=== PATIENT | male | born 1955 | race Caucasian/White ===

== ENCOUNTER 2019-10-14 12:15 | Day surgery (SDC) | payer OTHER ==
[~2019-10-14] VITALS: Ht 182.9 cm; Wt 106.3 kg
[~2019-10-14 12:15] MED LIST: TRIDERM28.4 GM
== END 2019-10-14 15:00 | disposition home or self-care (01) ==
LOC: ORSCSDS 12:15
PROVIDERS: Student in an Organized Health Care Education/Training Program
PROC: 0DBN8ZX Excision of Sigmoid Colon, Via Natural or Artificial Opening Endoscopic, Diagnostic (ICD-10-PCS; principal; 2019-10-14 14:30)
PROC: 0DBP8ZX Excision of Rectum, Via Natural or Artificial Opening Endoscopic, Diagnostic (ICD-10-PCS; principal; 2019-10-14 14:30)
PROC: 0DBK8ZX Excision of Ascending Colon, Via Natural or Artificial Opening Endoscopic, Diagnostic (ICD-10-PCS; principal; 2019-10-14 14:30)
DX: Z12.11 Encounter for screening for malignant neoplasm of colon (principal); D12.2 Benign neoplasm of ascending colon; K63.5 Polyp of colon; K62.1 Rectal polyp; K57.30 Diverticulosis of large intestine without perforation or abscess without bleeding; K64.8 Other hemorrhoids; Z86.010 Personal history of colon polyps; I10 Essential (primary) hypertension; F17.210 Nicotine dependence, cigarettes, uncomplicated
CPT/HCPCS: 88305; J2704; J7120

== ENCOUNTER → 2019-12-03 | Outpatient (CLI) | payer OTHER | END | disposition home or self-care (01) | LOC: PLD 11:57 → LAB SHORT 11:57 | DX: B35.1 Tinea unguium (principal) | CPT/HCPCS: 88305; 88312 ==

== ENCOUNTER 2020-09-09 11:36 | Day surgery (SDC) | payer OTHER ==
[~2020-09-09] VITALS: Ht 182.9 cm; Wt 110.0 kg
[2020-09-09] MEDS ORDERED: HYDR1TAB94 (12:00)
--- NOTE | 2020-09-09 13:28 | NUR ---
09/09/20 1328 Isabel Villalobos PATIENTS PREOP BLOOD PRESSURES WERE HIGH, TALKED WITH DR COUCH AND RECEIVED ORDER TO TREAT. WENT BACK IN WITH PATIENT AND RECHECKED HIS BP BEFORE MEDICATING AND PRESSURE WAS DONE TO ACCEPTABLE RANGE SO MEDICATION WAS NOT GIVEN. HOWEVER IT WAS PULLED AND OPENED IN PREPARATION SO THIS WILL NEED TO BE WASTED
--- NOTE | 2020-09-09 13:29 | NUR ---
09/09/20 1329 Bryson Burciaga 0.15MG EPINEPHRINE ADDED TO 30ML 0.5% BUPIVACAINE PL TO ACHIEVE A SOLUTION OF 0.5% BUPIVACAINE WITH EPI 1:200,000. 10ML OF SOLUTION INJ INTO OPSITE BY DR MCLEAN AT 1310.
== END 2020-09-09 14:06 | disposition home or self-care (01) ==
LOC: ORSCSDS 11:36
PROVIDERS: Ophthalmology
PROC: 080PXZZ Alteration of Left Upper Eyelid, External Approach (ICD-10-PCS; principal; 2020-09-09 13:00)
PROC: 080NXZZ Alteration of Right Upper Eyelid, External Approach (ICD-10-PCS; principal; 2020-09-09 13:00)
DX: H02.834 Dermatochalasis of left upper eyelid (principal); I25.10 Atherosclerotic heart disease of native coronary artery without angina pectoris; I10 Essential (primary) hypertension; M19.90 Unspecified osteoarthritis, unspecified site; G47.33 Obstructive sleep apnea (adult) (pediatric); J44.9 Chronic obstructive pulmonary disease, unspecified; F17.210 Nicotine dependence, cigarettes, uncomplicated; Z79.899 Other long term (current) drug therapy
CPT/HCPCS: A9270; J0171; J2250; J2704; J7040

== ENCOUNTER 2020-12-26 17:55 | Emergency (ER) | payer OTHER ==
[~2020-12-26] VITALS: Ht 182.9 cm; Wt 111.1 kg
[~2020-12-26 17:55] MED LIST changes: +HYDR1TAB94
== END 2020-12-26 20:18 | disposition home or self-care (01) ==
LOC: ER 17:55
DX: I80.02 Phlebitis and thrombophlebitis of superficial vessels of left lower extremity (principal); F17.200 Nicotine dependence, unspecified, uncomplicated; Z88.2 Allergy status to sulfonamides
CPT/HCPCS: 93971; 99283-25

== ENCOUNTER 2021-07-02 12:28 | Day surgery (SDC) | payer OTHER | END 2021-07-02 23:17 | disposition home or self-care (01) | LOC: WOUND 12:28 | PROC: 0JBP0ZZ Excision of Left Lower Leg Subcutaneous Tissue and Fascia, Open Approach (ICD-10-PCS; principal; 2021-07-02) | DX: I70.248 Atherosclerosis of native arteries of left leg with ulceration of other part of lower leg (principal); L97.822 Non-pressure chronic ulcer of other part of left lower leg with fat layer exposed; I70.25 Atherosclerosis of native arteries of other extremities with ulceration; L98.492 Non-pressure chronic ulcer of skin of other sites with fat layer exposed; I87.312 Chronic venous hypertension (idiopathic) with ulcer of left lower extremity; E11.9 Type 2 diabetes mellitus without complications; F17.200 Nicotine dependence, unspecified, uncomplicated; Z88.2 Allergy status to sulfonamides | CPT/HCPCS: A9270 ==

== ENCOUNTER 2021-07-05 01:49 | Day surgery (SDC) | payer OTHER | END 2021-07-05 23:10 | disposition home or self-care (01) | LOC: WOUND 01:49 | DX: L97.321 Non-pressure chronic ulcer of left ankle limited to breakdown of skin (principal); I87.312 Chronic venous hypertension (idiopathic) with ulcer of left lower extremity ==

== ENCOUNTER 2021-07-09 04:22 | Day surgery (SDC) | payer OTHER | END 2021-07-09 22:55 | disposition home or self-care (01) | LOC: WOUND 04:22 | DX: I87.312 Chronic venous hypertension (idiopathic) with ulcer of left lower extremity (principal); L97.322 Non-pressure chronic ulcer of left ankle with fat layer exposed; L97.822 Non-pressure chronic ulcer of other part of left lower leg with fat layer exposed | CPT/HCPCS: A9270 ==

== ENCOUNTER 2021-07-14 05:04 | Day surgery (SDC) | payer OTHER | END 2021-07-14 23:30 | disposition home or self-care (01) | LOC: WOUND 05:04 | DX: I87.312 Chronic venous hypertension (idiopathic) with ulcer of left lower extremity (principal) ==

== ENCOUNTER 2021-07-21 01:40 | Day surgery (SDC) | payer OTHER | END 2021-07-21 23:09 | disposition home or self-care (01) | LOC: WOUND 01:40 | DX: I87.312 Chronic venous hypertension (idiopathic) with ulcer of left lower extremity (principal) ==

== ENCOUNTER 2021-07-23 01:31 | Day surgery (SDC) | payer OTHER | END 2021-07-23 23:19 | disposition home or self-care (01) | LOC: WOUND 01:31 | DX: I87.312 Chronic venous hypertension (idiopathic) with ulcer of left lower extremity (principal); L97.822 Non-pressure chronic ulcer of other part of left lower leg with fat layer exposed; L97.321 Non-pressure chronic ulcer of left ankle limited to breakdown of skin ==

== ENCOUNTER 2021-07-30 01:54 | Day surgery (SDC) | payer OTHER | END 2021-07-30 23:01 | disposition home or self-care (01) | LOC: WOUND 01:54 | DX: I87.312 Chronic venous hypertension (idiopathic) with ulcer of left lower extremity (principal) ==

== ENCOUNTER 2021-08-06 04:47 | Day surgery (SDC) | payer OTHER | END 2021-08-06 23:14 | disposition home or self-care (01) | LOC: WOUND 04:47 | DX: L97.822 Non-pressure chronic ulcer of other part of left lower leg with fat layer exposed (principal); L97.321 Non-pressure chronic ulcer of left ankle limited to breakdown of skin; I87.312 Chronic venous hypertension (idiopathic) with ulcer of left lower extremity ==

== ENCOUNTER 2021-10-01 02:00 | Day surgery (SDC) | payer MEDICARE | END 2021-10-01 12:00 | disposition home or self-care (01) | LOC: WOUND 02:00 | DX: I87.312 Chronic venous hypertension (idiopathic) with ulcer of left lower extremity (principal); L97.822 Non-pressure chronic ulcer of other part of left lower leg with fat layer exposed | CPT/HCPCS: A9270 ==

== ENCOUNTER 2021-10-05 04:04 | Day surgery (SDC) | payer MEDICARE, OTHER | END 2021-10-05 22:36 | disposition home or self-care (01) | LOC: WOUND 04:04 | DX: L97.321 Non-pressure chronic ulcer of left ankle limited to breakdown of skin (principal); I87.312 Chronic venous hypertension (idiopathic) with ulcer of left lower extremity ==

== ENCOUNTER 2021-10-08 02:53 | Day surgery (SDC) | payer MEDICARE, OTHER | END 2021-10-08 23:01 | disposition home or self-care (01) | LOC: WOUND 02:53 | DX: L97.322 Non-pressure chronic ulcer of left ankle with fat layer exposed (principal); I87.312 Chronic venous hypertension (idiopathic) with ulcer of left lower extremity | CPT/HCPCS: A9270 ==

== ENCOUNTER 2021-10-15 00:37 | Day surgery (SDC) | payer MEDICARE, OTHER | END 2021-10-15 23:55 | disposition home or self-care (01) | LOC: WOUND 00:37 | DX: I87.312 Chronic venous hypertension (idiopathic) with ulcer of left lower extremity (principal); L97.321 Non-pressure chronic ulcer of left ankle limited to breakdown of skin; L97.529 Non-pressure chronic ulcer of other part of left foot with unspecified severity | CPT/HCPCS: A9270 ==

== ENCOUNTER 2021-10-22 00:53 | Day surgery (SDC) | payer MEDICARE, OTHER | END 2021-10-22 22:51 | disposition home or self-care (01) | LOC: WOUND 00:53 | DX: I87.309 Chronic venous hypertension (idiopathic) without complications of unspecified lower extremity (principal); Z87.2 Personal history of diseases of the skin and subcutaneous tissue | CPT/HCPCS: A9270; G0463 ==

== ENCOUNTER → 2022-04-26 | Outpatient (CLI) | payer MEDICARE, OTHER ==
[2022-04-26 19:09] LABS: Adenovirus F 40/41 Not Detected (NOT DETECT); Astrovirus Not Detected (NOT DETECT); Campylobacter Sp Not Detected (NOT DETECT); Cryptosporidium Not Detected (NOT DETECT); Cyclospora Cayetanensis Not Detected (NOT DETECT); E. Coli O157 Not Detected (NOT DETECT); Entamoeba Histolytica Not Detected (NOT DETECT); Enteroaggregative E. coli-EAEC Not Detected (NOT DETECT); Enteropathogenic E. coli-EPEC Not Detected (NOT DETECT); Enterotoxigenic E. coli-ETEC Not Detected (NOT DETECT); Giardia Lamblia Not Detected (NOT DETECT); Norovirus GI/GII Not Detected (NOT DETECT); Plesiomonas Shigelloides Not Detected (NOT DETECT); Rotavirus A Not Detected (NOT DETECT); Salmonella Sp Not Detected (NOT DETECT); Sapovirus Not Detected (NOT DETECT); Shiga Toxin-prod E. coli-STEC Not Detected (NOT DETECT); Shigella/Enteroin E. coli-EIEC Not Detected (NOT DETECT); Vibrio Cholerae Not Detected (NOT DETECT); Vibrio Sp Not Detected (NOT DETECT); Yersinia Enterocolitica Not Detected (NOT DETECT)
== END | disposition home or self-care (01) ==
LOC: LAB SHORT 14:21
PROVIDERS: Internal Medicine
DX: R19.7 Diarrhea, unspecified (principal)
CPT/HCPCS: 87507

== ENCOUNTER 2022-07-03 21:53 | Emergency (ER) | payer MEDICARE, OTHER ==
[~2022-07-03] VITALS: Ht 182.9 cm; Wt 108.9 kg
== END 2022-07-03 23:25 | disposition home or self-care (01) ==
LOC: ER 21:53
DX: U07.1 COVID-19 (principal); Z88.2 Allergy status to sulfonamides
CPT/HCPCS: 36415; J1885; J7030

== ENCOUNTER 2024-06-04 02:45 | Day surgery (SDC) | payer MEDICARE, OTHER | END 2024-06-04 23:00 | disposition home or self-care (01) | LOC: WOUND 02:45 | DX: I87.313 Chronic venous hypertension (idiopathic) with ulcer of bilateral lower extremity (principal); L97.812 Non-pressure chronic ulcer of other part of right lower leg with fat layer exposed; L97.822 Non-pressure chronic ulcer of other part of left lower leg with fat layer exposed; I73.9 Peripheral vascular disease, unspecified; Z72.0 Tobacco use | CPT/HCPCS: G0463 ==

== ENCOUNTER 2024-06-11 04:14 | Day surgery (SDC) | payer MEDICARE, OTHER | END 2024-06-11 23:12 | disposition home or self-care (01) | LOC: WOUND 04:14 | DX: I87.313 Chronic venous hypertension (idiopathic) with ulcer of bilateral lower extremity (principal); L97.822 Non-pressure chronic ulcer of other part of left lower leg with fat layer exposed; L97.812 Non-pressure chronic ulcer of other part of right lower leg with fat layer exposed; I87.2 Venous insufficiency (chronic) (peripheral); I73.9 Peripheral vascular disease, unspecified; Z72.0 Tobacco use | CPT/HCPCS: G0463 ==

== ENCOUNTER 2024-06-26 02:45 | Day surgery (SDC) | payer MEDICARE, OTHER | END 2024-06-26 23:00 | disposition home or self-care (01) | LOC: WOUND 02:45 | DX: I87.313 Chronic venous hypertension (idiopathic) with ulcer of bilateral lower extremity (principal); L97.812 Non-pressure chronic ulcer of other part of right lower leg with fat layer exposed; L97.822 Non-pressure chronic ulcer of other part of left lower leg with fat layer exposed; M31.9 Necrotizing vasculopathy, unspecified; I73.9 Peripheral vascular disease, unspecified; Z72.0 Tobacco use ==

== ENCOUNTER 2024-06-28 02:28 | Day surgery (SDC) | payer MEDICARE, OTHER | END 2024-06-29 02:57 | disposition home or self-care (01) | LOC: WOUND 02:28 | DX: I87.313 Chronic venous hypertension (idiopathic) with ulcer of bilateral lower extremity (principal); L97.812 Non-pressure chronic ulcer of other part of right lower leg with fat layer exposed; L97.822 Non-pressure chronic ulcer of other part of left lower leg with fat layer exposed; I87.2 Venous insufficiency (chronic) (peripheral); I73.9 Peripheral vascular disease, unspecified; Z72.0 Tobacco use ==